=== PATIENT | female | born 1990 | race Caucasian/White ===

== ENCOUNTER 2017-12-29 08:33 | Inpatient (IN) | payer BC ==
[~2017-12-29] VITALS: Ht 165.1 cm; Wt 86.3 kg
[2017-12-29] MEDS ORDERED: OXYTOCIN 30U/ 0.9% NaCL 500ML 500 ML IV SCH (14:32)
[2017-12-29] MEDS ORDERED: LACTATED RINGERS 1,000 ML IV SCH ×2 (14:32→16:28)
[2017-12-29] MEDS ORDERED: PREN1TAB10 PO (14:37)
[2017-12-29] MEDS ORDERED: SODIUM CITRATE/CITRIC ACID 30 ML UDC ONE (14:44)
[2017-12-29] MEDS ORDERED: OXYTOCIN 30U/ 0.9% NaCL 500ML 500 ML ONE (14:44)
[2017-12-29] MEDS ORDERED: NEWBORN KIT ONE (14:44)
[2017-12-29] MEDS ORDERED: METOCLOPRAMIDE 5 MG/ML, 2ML ONE (14:44)
[2017-12-29] MEDS ORDERED: LACTATED RINGERS 1,000 ML IVBOLUS ONE (15:00)
[2017-12-29] MEDS ORDERED: METOCLOPRAMIDE 5 MG/ML, 2ML IV ONE (15:00)
[2017-12-29] MEDS ORDERED: SODIUM CITRATE/CITRIC ACID 30 ML UDC PO ONE (15:00)
[2017-12-29 15:05] LABS: BASOPHILS # (AUTO) 0.04 x10^3/uL (0-0.1); BASOPHILS % (AUTO) 0 % (0-1); EOSINOPHILS # (AUTO) 0.09 x10^3/uL (0-0.4); EOSINOPHILS % (AUTO) 1 % (1-7); LYMPHOCYTES # (AUTO) 1.62 x10^3/uL (1-3.4); LYMPHOCYTES % (AUTO) 15 % (22-44); MD NO; MEAN CORPUSCULAR HEMOGLOBIN 29.7 pg (27.0-34.8); MEAN CORPUSCULAR HGB CONC 33.7 g/dL (32.4-35.8); MEAN CORPUSCULAR VOLUME 88.1 fL (80-100); MEAN PLATELET VOLUME 7.9 fL (7.4-10.4); MONOCYTES # (AUTO) 0.58 x10^3/uL (0.2-0.8); MONOCYTES % (AUTO) 5 % (2-9); NEUTROPHILS # (AUTO) 8.83 x10^3/uL (1.8-6.8); NEUTROPHILS % (AUTO) 79 % (42-75); PLATELET COUNT 264 x10^3/uL (130-400); RED BLOOD COUNT 3.85 x10^6/uL (3.82-5.3); RED CELL DISTRIBUTION WIDTH 12.8 % (9.6-15.2)
[2017-12-29 15:07] VITALS: BP 117/58
[2017-12-29] MEDS ORDERED: hydrALAzine 20 MG/ML, 1ML IV PRN ×2 (16:00)
[2017-12-29] MEDS ORDERED: MEPERIDINE/PF 25MG/0.5ML IVPush PRN ×2 (16:00)
[2017-12-29] MEDS ORDERED: KETOROLAC 30 MG/1 ML ONE (16:00)
[2017-12-29] MEDS ORDERED: DEXAMETHASONE 4 MG/ML, 1ML ONE (16:00)
[2017-12-29] MEDS ORDERED: OXYTOCIN 10 UNITS/ML, 1ML ONE (16:00)
[2017-12-29] MEDS ORDERED: ONDANSETRON 2MG/ML, 2ML IVPush PRN ×2 (16:00)
[2017-12-29] MEDS ORDERED: FENTANYL PF 100 MCG/2ML IV PRN ×2 (16:00)
[2017-12-29] MEDS ORDERED: ONDANSETRON 2MG/ML, 2ML ONE (16:00)
[2017-12-29] MEDS ORDERED: ALBUTEROL SULFATE 2.5 MG/3 ML NPPB PRN ×2 (16:00)
[2017-12-29] MEDS ORDERED: FENTANYL PF 100 MCG/2ML ONE (16:00)
[2017-12-29] MEDS ORDERED: HYDROmorphone 1 MG/ML, 1ML IV PRN ×2 (16:00)
[2017-12-29] MEDS ORDERED: CEFAZOLIN 1,000 MG ONE (16:00)
[2017-12-29] MEDS ORDERED: LABETALOL 5MG/ML, 20ML IV PRN ×2 (16:00)
[2017-12-29] MEDS ORDERED: EPHEDRINE 50 MG/ML, 1ML ONE (16:00)
[2017-12-29] MEDS ORDERED: PHENYLEPHRINE 10 MG/ML ONE (16:00)
[2017-12-29] MEDS ORDERED: PROMETHAZINE 25 MG/ML, 1ML IV PRN ×2 (16:00)
[2017-12-29] MEDS ORDERED: HYDROcodone/APAP 7.5-325MG/15ML UDC PO PRN ×2 (16:00)
[2017-12-29] MEDS ORDERED: OXYcodone 5 MG/5 ML ORAL.SOL UDC PO PRN ×2 (16:00)
[2017-12-29] MEDS ORDERED: MIDAZOLAM 1 MG/ML, 2ML IV PRN ×2 (16:00)
[2017-12-29] MEDS ORDERED: EPHEDRINE 50 MG/ML, 1ML IVPush PRN ×2 (16:00)
[2017-12-29] MEDS ORDERED: morphine SULFATE/PF 1 MG/ML, 10ML ONE (16:01)
[2017-12-29] MEDS ORDERED: morphine SULFATE 10 MG/ML, 1ML IVPush PRN (16:30)
[2017-12-29] MEDS ORDERED: ONDANSETRON 2MG/ML, 2ML IV PRN (16:30)
[2017-12-29] MEDS: KETOROLAC 30 MG/1 ML IV SCH ×2 (16:30→22:45)
[2017-12-29] MEDS ORDERED: DIPH,PERTUSS(ACELL),TET VAC/PF NC IM-VACC PRN (16:30)
[2017-12-29] MEDS ORDERED: SIMETHICONE 80 MG CHEW TAB PO PRN (16:30)
[2017-12-29] MEDS ORDERED: CALCIUM CARBONATE 500 MG TAB.CHEW PO PRN (16:30)
[2017-12-29] MEDS ORDERED: MISOPROSTOL 200 MCG TABLET PR PRN (16:30)
[2017-12-29] MEDS ORDERED: RHOGAM FROM BLOOD BANK 1 NOTE EA IM/IV ONE (16:30)
[2017-12-29] MEDS ORDERED: MEASLES,MUMPS&RUBELLA VACC/PF 0.5 ML SQ-VACC PRN (16:30)
[2017-12-29] MEDS: OXYTOCIN 30U/ 0.9% NaCL 500ML 500 ML IV SCH (18:30)
[2017-12-29] MEDS: LACTATED RINGERS 1,000 ML IV SCH (18:49)
[2017-12-29] MEDS ORDERED: OXYcodone 5 MG/5 ML ORAL.SOL UDC ONE (19:01)
[2017-12-29 20:00] VITALS: BP 117/71
[2017-12-29] MEDS: DOCUSATE 100 MG CAPSULE PO PRN (22:45)
[2017-12-29] MEDS: OXYcodone/APAP 5/325MG TABLET PO PRN (22:45)
[2017-12-30 00:30] VITALS: BP 114/65
[2017-12-30 01:20] LABS: BASOPHILS # (AUTO) 0.05 x10^3/uL (0-0.1); BASOPHILS % (AUTO) 0 % (0-1); EOSINOPHILS # (AUTO) 0.01 x10^3/uL (0-0.4); EOSINOPHILS % (AUTO) 0 % (1-7); LYMPHOCYTES # (AUTO) 0.96 x10^3/uL (1-3.4); LYMPHOCYTES % (AUTO) 6 % (22-44); MD NO; MEAN CORPUSCULAR HEMOGLOBIN 29.9 pg (27.0-34.8); MEAN CORPUSCULAR HGB CONC 34.2 g/dL (32.4-35.8); MEAN CORPUSCULAR VOLUME 87.5 fL (80-100); MEAN PLATELET VOLUME 7.6 fL (7.4-10.4); MONOCYTES # (AUTO) 0.73 x10^3/uL (0.2-0.8); MONOCYTES % (AUTO) 4 % (2-9); NEUTROPHILS # (AUTO) 15.26 x10^3/uL (1.8-6.8); NEUTROPHILS % (AUTO) 90 % (42-75); PLATELET COUNT 253 x10^3/uL (130-400); RED BLOOD COUNT 3.65 x10^6/uL (3.82-5.3); RED CELL DISTRIBUTION WIDTH 13.4 % (9.6-15.2)
[2017-12-30] MEDS: OXYTOCIN 30U/ 0.9% NaCL 500ML 500 ML IV SCH ×3 (02:28→22:28)
[2017-12-30] MEDS ORDERED: LIDOCAINE 2% 100MG/5ML SYRINGE ONE (02:57)
[2017-12-30] MEDS ORDERED: SUCCINYLCHOLINE 20 MG/ML, 10ML ONE (02:57)
[2017-12-30] MEDS: LACTATED RINGERS 1,000 ML IV SCH ×3 (03:00→23:00)
[2017-12-30 04:30] VITALS: BP 95/56
[2017-12-30] MEDS: KETOROLAC 30 MG/1 ML IV SCH ×4 (05:01→22:35)
[2017-12-30] MEDS: OXYcodone/APAP 5/325MG TABLET PO PRN (05:02)
[2017-12-30 07:30] VITALS: BP 100/63
[2017-12-30] MEDS: DOCUSATE 100 MG CAPSULE PO PRN (08:59)
[2017-12-30] MEDS: OXYcodone IR 5MG TABLET PO PRN ×4 (09:00→22:36)
[2017-12-30] MEDS: PRENATAL VIT/IRON/FA 1 EACH TABLET PO SCH (09:00)
[2017-12-30 11:50] VITALS: BP 105/64
[2017-12-30 16:10] VITALS: BP 121/80
[2017-12-30 20:19] VITALS: BP 117/68
[2017-12-31] MEDS: KETOROLAC 30 MG/1 ML IV SCH ×3 (03:35→11:08)
[2017-12-31 07:40] VITALS: BP 114/74
[2017-12-31] MEDS: OXYcodone/APAP 5/325MG TABLET PO PRN ×2 (07:42→23:37)
[2017-12-31] MEDS: DOCUSATE 100 MG CAPSULE PO PRN ×2 (07:42→23:37)
[2017-12-31] MEDS: PRENATAL VIT/IRON/FA 1 EACH TABLET PO SCH (07:42)
[2017-12-31] MEDS: OXYTOCIN 30U/ 0.9% NaCL 500ML 500 ML IV SCH ×2 (08:28→18:28)
[2017-12-31] MEDS: LACTATED RINGERS 1,000 ML IV SCH ×2 (09:00→19:00)
[2017-12-31] MEDS: IBUPROFEN 600 MG TABLET PO PRN ×3 (11:13→23:37)
[2017-12-31] MEDS: OXYcodone IR 5MG TABLET PO PRN (18:19)
[2017-12-31 21:05] VITALS: BP 116/71
[2018-01-01] MEDS: OXYTOCIN 30U/ 0.9% NaCL 500ML 500 ML IV SCH ×2 (04:28→14:28)
[2018-01-01] MEDS: LACTATED RINGERS 1,000 ML IV SCH ×2 (05:00→15:00)
[2018-01-01] MEDS: IBUPROFEN 600 MG TABLET PO PRN ×2 (06:19→14:53)
[2018-01-01] MEDS: OXYcodone/APAP 5/325MG TABLET PO PRN ×3 (06:19→16:36)
[2018-01-01 09:30] VITALS: BP 110/63
[2018-01-01] MEDS: DOCUSATE 100 MG CAPSULE PO PRN (11:48)
[2018-01-01] MEDS: PRENATAL VIT/IRON/FA 1 EACH TABLET PO SCH (11:49)
[2018-01-01] MEDS ORDERED: IBUP-1222 PO (13:15)
[2018-01-01] MEDS ORDERED: OXYC-302 PO (13:16)
== END 2018-01-01 18:00 | disposition home or self-care (01) | DRG 788 ==
LOC: LDIP 14:19 → 2NW 19:51
PROVIDERS: ADMIT Obstetrics & Gynecology Gynecology; ATTEND Obstetrics & Gynecology Gynecology
PROC: 10D00Z1 Extraction of Products of Conception, Low, Open Approach (ICD-10-PCS; principal; 2017-12-29)
DX: O32.1XX0 Maternal care for breech presentation, not applicable or unspecified (principal); Z3A.39 39 weeks gestation of pregnancy; Z37.0 Single live birth
CPT/HCPCS: 36415; 82803; 85025; 86850; 86900; G0378; J0690; J1100; J1885; J2274; J2405; J3010; J0330; J2270; J2370; J2590; J2765; J7120

== ENCOUNTER 2020-09-09 12:18 | Inpatient (IN) | payer BC ==
[~2020-09-09] VITALS: Ht 165.1 cm; Wt 90.9 kg
[~2020-09-09 12:18] MED LIST: IBUP-1222 PO; OXYC1TAB14 PO; PREN1TAB10 PO
[2020-09-16] MEDS ORDERED: SODIUM CHLORIDE FLUSH 10ML SYR IVF PRN (08:00)
[2020-09-16] MEDS ORDERED: ONDANSETRON 2MG/ML, 2ML IVPush PRN (08:00)
[2020-09-16] MEDS ORDERED: TERBUTALINE 1 MG/ML, 1ML SQ PRN (08:00)
[2020-09-16] MEDS ORDERED: TERBUTALINE 1 MG/ML, 1ML IVPush PRN (08:00)
[2020-09-16] MEDS ORDERED: OXYTOCIN 30U/ 0.9% NaCL 500ML 500 ML IV ONE (08:00)
[2020-09-16] MEDS ORDERED: FENTANYL PF 100 MCG/2ML IVPush PRN (08:00)
[2020-09-16 08:26] LABS: BASOPHILS % (AUTO) 0 % (0-1); EOSINOPHILS % (AUTO) 2 % (1-7); LYMPHOCYTES % (AUTO) 18 % (22-44); MEAN CORPUSCULAR HEMOGLOBIN 29.8 pg (27.0-34.8); MEAN CORPUSCULAR HGB CONC 34.6 g/dL (32.4-35.8); MEAN PLATELET VOLUME 8.5 fL (7.4-10.4); MONOCYTES % (AUTO) 6 % (2-9); NEUTROPHILS % (AUTO) 74 % (42-75); PLATELET COUNT 230 x10^3/uL (130-400); RED BLOOD COUNT 3.96 x10^6/uL (3.82-5.3); RED CELL DISTRIBUTION WIDTH 14.2 % (9.6-15.2)
[2020-09-16] MEDS: LACTATED RINGERS 1,000 ML IV SCH ×2 (09:00→20:47)
[2020-09-16] MEDS ORDERED: NEWBORN KIT ONE (09:59)
[2020-09-16] MEDS ORDERED: OXYTOCIN 30U/ 0.9% NaCL 500ML 500 ML ONE (20:48)
[2020-09-17] MEDS ORDERED: FENTANYL/BUPIV./NS/PF 250 ML EPIDCONT ONE (07:48)
[2020-09-17] MEDS ORDERED: LIDOCAINE/PF 1.5% EPI 1:200K, 10 ML ONE (07:49)
[2020-09-17] MEDS ORDERED: BUPIVACAINE 0.25% ONE ×2 (07:54→19:00)
[2020-09-17] MEDS ORDERED: NALOXONE 0.4 MG/ML, 1ML IVPush PRN (09:00)
[2020-09-17] MEDS: LACTATED RINGERS 1,000 ML IV SCH ×4 (09:00→19:30)
[2020-09-17] MEDS ORDERED: EPHEDRINE 50 MG/ML, 1ML IVPush PRN (09:00)
[2020-09-17] MEDS ORDERED: FENTANYL/BUPIV./NS/PF 250 ML EPIDCONT SCH (09:00)
[2020-09-17] MEDS ORDERED: LACTATED RINGERS 1,000 ML IVBOLUS PRN (09:00)
[2020-09-17] MEDS: D5%-LACTATED RINGERS 1,000 ML IV SCH (15:30)
[2020-09-17] MEDS ORDERED: METOCLOPRAMIDE 5 MG/ML, 2ML ONE (18:29)
[2020-09-17] MEDS ORDERED: SODIUM CITRATE/CITRIC ACID 15 ML UDC ONE (18:29)
[2020-09-17] MEDS ORDERED: ONDANSETRON 2MG/ML, 2ML ONE (18:53)
[2020-09-17] MEDS ORDERED: FENTANYL PF 100 MCG/2ML ONE (18:53)
[2020-09-17] MEDS ORDERED: CEFAZOLIN 1,000 MG ONE ×2 (18:53)
[2020-09-17] MEDS ORDERED: OXYTOCIN 10 UNITS/ML, 1ML ONE ×2 (18:53)
[2020-09-17] MEDS ORDERED: CARBOPROST TROMETHAMINE 250 MCG/ML, 1ML IM PRN (19:00)
[2020-09-17] MEDS ORDERED: MORPHINE SULFATE 4 MG/ML, 1ML IVPush PRN (19:00)
[2020-09-17] MEDS ORDERED: METHYLERGONOVINE 0.2 MG/ML IM PRN (19:00)
[2020-09-17] MEDS ORDERED: KETOROLAC 30 MG/1 ML ONE (19:00)
[2020-09-17] MEDS ORDERED: METOCLOPRAMIDE 5 MG/ML, 2ML IV ONE (19:00)
[2020-09-17] MEDS: OXYTOCIN 30U/ 0.9% NaCL 500ML 500 ML IV SCH (19:00)
[2020-09-17] MEDS ORDERED: morphine SULFATE 10 MG/ML, 1ML IM PRN (19:00)
[2020-09-17] MEDS ORDERED: AZITHROMYCIN 500 MG in SODIUM CHLORIDE 0.9% 250 ML IV ONE (19:00)
[2020-09-17] MEDS ORDERED: ONDANSETRON 2MG/ML, 2ML IV PRN (19:00)
[2020-09-17] MEDS ORDERED: SODIUM CITRATE/CITRIC ACID 30 ML UDC PO ONE (19:00)
[2020-09-17] MEDS ORDERED: MISOPROSTOL 200 MCG TABLET PR PRN (19:00)
[2020-09-17] MEDS ORDERED: DIPH,PERTUSS(ACELL),TET VAC/PF NC IM-VACC PRN (19:00)
[2020-09-17] MEDS ORDERED: HYDROmorphone 1 MG/ML, 1ML INJ ONE (19:44)
[2020-09-17] MEDS ORDERED: EPHEDRINE 50 MG/ML, 1ML ONE (19:45)
[2020-09-17 22:35] VITALS: BP 121/71
[2020-09-17] MEDS: OXYcodone/APAP 5/325MG TABLET PO PRN (23:18)
[2020-09-18] MEDS: LACTATED RINGERS 1,000 ML IV SCH ×8 (01:00→19:00)
[2020-09-18] MEDS: KETOROLAC 30 MG/1 ML IV SCH ×5 (01:00→20:00)
[2020-09-18] MEDS: OXYcodone/APAP 5/325MG TABLET PO PRN ×2 (03:32→17:49)
[2020-09-18 03:58] LABS: BASOPHILS % (AUTO) 0 % (0-1); EOSINOPHILS % (AUTO) 0 % (1-7); LYMPHOCYTES % (AUTO) 8 % (22-44); MEAN CORPUSCULAR HEMOGLOBIN 29.9 pg (27.0-34.8); MEAN CORPUSCULAR HGB CONC 34.8 g/dL (32.4-35.8); MEAN PLATELET VOLUME 8.3 fL (7.4-10.4); MONOCYTES % (AUTO) 5 % (2-9); NEUTROPHILS % (AUTO) 86 % (42-75); PLATELET COUNT 181 x10^3/uL (130-400); RED BLOOD COUNT 3.18 x10^6/uL (3.82-5.3); RED CELL DISTRIBUTION WIDTH 14.3 % (9.6-15.2)
[2020-09-18 04:30] VITALS: BP 118/70
[2020-09-18] MEDS: OXYTOCIN 30U/ 0.9% NaCL 500ML 500 ML IV SCH ×2 (05:00→15:00)
[2020-09-18 07:00] VITALS: BP 102/69
[2020-09-18] MEDS: SIMETHICONE 80 MG CHEW TAB PO PRN ×3 (07:39→21:12)
[2020-09-18] MEDS: OXYcodone IR 5MG TABLET PO PRN ×3 (07:40→21:11)
[2020-09-18] MEDS: DOCUSATE 100 MG CAPSULE PO PRN ×2 (07:40→21:11)
[2020-09-18] MEDS: PRENATAL VIT/IRON/FA 1 EACH TABLET PO SCH (07:40)
[2020-09-18] MEDS: FERROUS SULFATE 325 MG TABLET PO SCH (07:40)
[2020-09-18] MEDS: D5%-LACTATED RINGERS 1,000 ML IV SCH ×3 (08:00→16:00)
[2020-09-18 12:00] VITALS: BP 104/66
[2020-09-18 16:00] VITALS: BP 115/71
[2020-09-18 19:20] VITALS: BP 107/69
[2020-09-18] MEDS: ACETAMINOPHEN 325 MG TABLET PO PRN (21:11)
[2020-09-19] MEDS: LACTATED RINGERS 1,000 ML IV SCH ×2 (01:00→03:00)
[2020-09-19] MEDS: OXYTOCIN 30U/ 0.9% NaCL 500ML 500 ML IV SCH (01:00)
[2020-09-19] MEDS: KETOROLAC 30 MG/1 ML IV SCH ×2 (02:05→07:47)
[2020-09-19] MEDS: OXYcodone IR 5MG TABLET PO PRN ×2 (03:58→11:03)
[2020-09-19] MEDS: ACETAMINOPHEN 325 MG TABLET PO PRN ×2 (03:59→11:02)
[2020-09-19] MEDS: D5%-LACTATED RINGERS 1,000 ML IV SCH ×2 (07:22)
[2020-09-19] MEDS: DOCUSATE 100 MG CAPSULE PO PRN (07:47)
[2020-09-19] MEDS: FERROUS SULFATE 325 MG TABLET PO SCH (07:48)
[2020-09-19] MEDS: PRENATAL VIT/IRON/FA 1 EACH TABLET PO SCH (07:49)
[2020-09-19] MEDS: SIMETHICONE 80 MG CHEW TAB PO PRN (07:49)
[2020-09-19 07:58] VITALS: BP 104/66
[2020-09-19] MEDS ORDERED: IBUPROFEN 600 MG TABLET PO PRN (19:00)
== END 2020-09-19 17:00 | disposition home or self-care (01) | DRG 787 ==
LOC: LDIP 09-16 07:25 → 2NW 09-17 22:20
PROVIDERS: ADMIT Obstetrics & Gynecology Maternal & Fetal Medicine; ATTEND Obstetrics & Gynecology Maternal & Fetal Medicine
PROC: 10D00Z1 Extraction of Products of Conception, Low, Open Approach (ICD-10-PCS; principal; 2020-09-18)
DX: O48.0 Post-term pregnancy (principal); O63.9 Long labor, unspecified; O34.211 Maternal care for low transverse scar from previous cesarean delivery; O62.1 Secondary uterine inertia; Z37.0 Single live birth; Z3A.41 41 weeks gestation of pregnancy; Z20.822 Contact with and (suspected) exposure to COVID-19
CPT/HCPCS: 36415; J7121; 85025; 86592; 86850; 86900; 87635; G0378; J0456; J0690; J1170; J1885; J2405; J3010; J2590; J2765; J7050; J7120